=== PATIENT | male | born 1995 | race Caucasian/White ===

== ENCOUNTER 2019-09-02 00:07 | Emergency (ER) | payer OTHER, SELFPAY ==
[2019-09-02 00:08] VITALS: BP 117/73; PULSE 97; RESP 16; TEMP 37.2; O2SAT 97
[2019-09-02] MEDS: 0.9% Normal Saline 1,000 ML 1000 ML IV (00:41)
[2019-09-02 00:46] LABS: Absolute Lymphocyte Count 0.87 X10^3/uL (0.83-4.51); Absolute Neutrophil Count 0.8 X10^3/uL (2.0-7.7); Basophil# 0.01 X10^3/uL; Basophil% 0.5 % (0-1); Eosinophil# 0.01 X10^3/uL; Eosinophils% 0.5 % (0-5); Hematocrit 45.3 % (40-54); Hemoglobin 15.4 g/dL (13.0-16.5); Lymphocyte # 0.87 X10^3/ul (4.0); Lymphocyte % 43.1 % (19-41); Mean Corpuscular Hgb 30.1 pg (27.0-32.0); Mean Corpuscular Volume 88.6 fL (80-94); Mean Platelet Vol. 8.8 fl (6.2-12.0); Monocyte# 0.31 X10^3/uL; Monocyte% 15.3 % (0-10); NRBC Flagged by Analyzer 0 % (0-5); Neutrophil # 0.81 X10^3/uL (2.7-7.7); Neutrophil % 40.1 % (47-70); POSITIVE DIFFERENTIAL YES; Platelet Count 111 K/mm3 (150-450); RBC Distribution Width CV 11.8 % (11.6-14.6); RBC Distribution Width SD 38.2 fl (35.1-43.9); Red Blood Count 5.11 M/mm3 (4.6-6.2)
[2019-09-02 00:51] LABS: Differential Indicated SCAN CRITERIA MET
[2019-09-02 01:05] LABS: ALB/GLOB Ratio 1.4 RATIO (0.9-2.4); AST(SGOT) 31 U/L (15-37); Alanine Aminotransfer ALT/SGPT 29 U/L (16-61); Albumin, Serum 3.8 g/dL (3.2-5.0); Alkaline Phosphatase 36 U/L (45-117); Anion Gap 8 (5-15); BUN 9 mg/dL (7-18); BUN/Creat Ratio 8.7 RATIO (10-20); Calcium,Total 8.5 mg/dL (8.5-10.1); Chloride 106 mmol/L (98-107); Creatinine, Serum 1.04 mg/dL (0.70-1.30); EST Glomerular Filtration Rate 93 mL/min (>60); Est Glom Filt Rate - Afr Amer 113 mL/min (>60); Globulin 2.7 g/dL (2.2-4.2); Glucose 90 mg/dL (74-106); Potassium 3.7 mmol/L (3.5-5.1); Protein, Total 6.5 g/dL (6.4-8.2); Sodium Level 138 mmol/L (136-145)
--- NOTE | 2019-09-02 01:06 | ED.VISSUMM ---
- ER Visit Summary Date of Service: 09/02/19 Chief Complaint: Fever History of Present Illness: The patient is a 24 M who presents with a fever that began yesterday. Patient also admits to a headache. Patient states I am not sure if I have the flu or meningitis. Patient states his headache is sharp. Patient states the pain is over the occipital area. Patient states his fever has been up to 101.9 at home. Patient states he has been taking Motrin with some improvement of his fever. Patient admits to a cough but denies any shortness of breath. Patient does admit to some rhinorrhea. Patient admits to some mild pain in his neck and low back. Physical Examination: Vital signs are stable. Patient is afebrile here. Patient is in no acute distress. Oral mucosa is pink and moist. Oropharynx is clear. Neck is supple. There is full range of motion of the cervical spine. There is mild paraspinal tenderness. There is no midline tenderness. There are no meningeal signs noted. There is some mild tenderness over the lower lumbar spine. There is no edema or erythema. There is good range of motion of the lumbar spine. Kernig's and Brudzinski signs are negative. Heart was regular rate and rhythm. Lungs are clear and equal bilaterally. Abdomen is soft and nontender. Cranial nerves II through XII are intact. There are no focal motor or sensory deficits noted. Test Results: Influenza swab was positive for influenza B. CBC showed a white blood cell count 2.0 and a mild thrombocytopenia of 111. Comprehensive metabolic profile was within normal limits. Emergency Department Course and Treatment: Patient was given IV fluids here. Patient felt better on reevaluation. Patient was started on Tamiflu here and was given a prescription for Tamiflu. Patient was instructed to follow-up with his primary care physician in 5 to 7 days. Patient understood and was agreeable with the plan. All questions were answered. Disposition: Discharge home Impression: Influenza B This note was generated with [employer] dictation software. It may contain incorrect words, spelling, and punctuation that were not noted in review of the chart prior to signing ED Disposition - Plan for ED Patient: Disposition: Home or Assisted Living Diagnosis: Influenza B Instructions: INFLUENZA (Adult) Prescriptions: Oseltamivir Phosphate [Tamiflu] 75 mg PO BID #10 cap Prescription Printed Referrals: NOT,DEFINED [NON-STAFF] - 5-7 Days
[2019-09-02 01:08] LABS: Differential Comment SCANNED
[2019-09-02 02:00] VITALS: BP 107/63; PULSE 89; RESP 16; O2SAT 99
[2019-09-02] MEDS: Oseltamivir Phosphate 75 MG Capsule PO (02:00)
== END 2019-09-02 02:01 | disposition home or self-care (01) ==
PROVIDERS: Emergency Provider Emergency Medicine
DX: J10.1 Influenza due to other identified influenza virus with other respiratory manifestations (principal); D69.6 Thrombocytopenia, unspecified; F17.200 Nicotine dependence, unspecified, uncomplicated
CPT/HCPCS: 80053; 85025; 87804; 96360; 99284